=== PATIENT | female | born 1945 ===

== ENCOUNTER 2017-01-15 02:13 | Inpatient (IN) ==
--- NOTE | 2017-01-15 02:53 | Emergency Department Note ---
Bam Saldivar Mantricia, am scribing for, and in the presence of, Jamey Corrales MD 02:50. Antoni Saldivar Robert M, MD, personally performed the services described in this documentation, ascribed by Diana Kuhn in my presence, and it is both accurate and complete 252 . Arrival - Arrival Chief Complaint: Extremity Injury Stated Complaint: right hip Fx ED Nursing Triage Note: Patient to ED via EMS from [facility] ED for further evaluation and treatment of right hip Fx s/p fall 6 days ago. Patient is taken care of by her son who told [facility] that after she fell she did not c/o pain until 2 days ago. [facility] reports internal rotation and shortening, but good cap refill and pulses. Patient arrives to ED awake and alert. Mode of Arrival: Stretcher Limitations: No Limitations Source: Patient - History of Present Illness HPI Narrative: Pt is a 71 y/o female arriving to ED by EMS from [facility] ED for further evaluation and treatment of right hip fracture s/p fall 6 days ago. Patient is taken care of her son who reported to [facility] that after pt fell, she did not c/o pain until 2 days ago. Pt ambulates with a wheelchair. She has a PMHx of right sided CVA. No other complaints were reported to ED. Onset (ago): hour(s) Consistency: constant Severity: moderate Date of Last Menstrual Period: HYST Allergies/Adverse Reactions: Allergies Allergy/AdvReac Type Severity Reaction Status Date / Time codeine Allergy HIVES Verified 01/15/17 02:27 doxycycline Allergy HIVES Verified 01/15/17 02:27 Home Medications: Home Medications Medication Instructions Recorded Confirmed Type Chlorthalidone 25 mg PO QAM 11/14/14 01/15/17 History Dipyridamole/Aspirin 200-25 1 capsule PO BID 11/14/14 01/15/17 History [Aggrenox] Gabapentin 100 mg PO QPM 11/14/14 01/15/17 History Losartan [Cozaar] 50 mg PO DAILY 11/14/14 01/15/17 History Metoprolol Succinate Xl [Toprol Xl] 50 mg PO QPM 11/14/14 01/15/17 History Ranitidine Tab [Zantac Tab] 150 mg PO BID 11/14/14 01/15/17 History amLODIPine [Norvasc] 10 mg PO DAILY 11/14/14 01/15/17 History Hypromellose [Systane Gel] 1 drop BOTH EYES QID PRN 01/15/17 01/15/17 History Mineral Oil/Petrolatum,White 1 applic BOTH EYES BEDTIME PRN 01/15/17 01/15/17 History [Artificial Tears Eye Ointment] Multivitamin with Iron 1 tablet PO DAILY 01/15/17 01/15/17 History [Multivitamins with Iron] Naproxen [Naproxen Tab] 1 tablet PO BEDTIME 01/15/17 01/15/17 History Potassium Chloride 1 tablet PO DAILY 01/15/17 01/15/17 History Simvastatin 1 tablet PO DAILY 01/15/17 01/15/17 History Terbinafine 1% Cream [Lamisil AT 1 applic TRANSDERM BID 01/15/17 01/15/17 History 1% Cream] metFORMIN [Glucophage] 1 tablet PO DAILY 01/15/17 01/15/17 History traZODone [Desyrel] 50 tablet PO BEDTIME 01/15/17 01/15/17 History Review of System - Review of System 12 point system: reviewed and no additional remarkable complaints except as stated - Review of System Constitutional: Absent: chills, diaphoresis, fever Respiratory: Absent: cough Cardiovascular: Absent: chest pain Gastrointestinal: Absent: abdominal pain, nausea, vomiting, diarrhea Musculoskeletal: Present: leg pain, other (right hip fx). Absent: arm pain, back pain, neck pain Medical,Surgical,& Family Hx - Medical History Cardio: History of: Cerebrovascular Disease, Hypertension HEENT: History of: Eye Problem (cataracts in left eye) Endocrine: History of: Diabetes Mellitus (IDDM) Genitourinary: History of: Bladder Problem Hematology: No history of: Blood Transfusion Reaction Other: No history of: Anesthesia Reactions - Surgical History Thoracic Surgeries: Patient denies;: Organ Transplant Abdominal Surgeries: Surgical HX of: Cholecystectomy (1982) Reproductive Surgeries: Surgical HX of;: Genitourinary Surgery (bladder surgery 1992), Hysterectomy, Tubal Ligation Orthopedic Surgeries: Surgical HX of;: Total Knee Replacement (right knee) - Social History Smoking Status: Never smoker Frequency of Alcohol Use: None Type of Drug Use: None Exam Vital Signs: Vital Signs Temperature 98.0 F 01/15/17 02:18 Pulse Rate 95 H 01/15/17 02:18 Respiratory Rate 18 01/15/17 02:18 Blood Pressure 141/60 01/15/17 02:18 O2 Sat by Pulse Oximetry 97 01/15/17 02:18 - General General appearance: alert, in no apparent distress - Head Head exam: Present: atraumatic, normocephalic, normal inspection - Eye Eye exam: Present: normal appearance, PERRL, EOMI - ENT ENT exam: Present: normal exam, normal oropharynx, mucous membranes moist, TM's normal bilaterally, normal external ear exam - Neck Neck exam: Present: normal inspection, full ROM, trachea midline. Absent: tenderness - Chest Chest inspection: Present: normal inspection, symmetric chest wall rise. Absent : tenderness - Respiratory Respiratory exam: Present: normal lung sounds bilaterally - Cardiovascular Cardiovascular exam: Present: regular rate, normal rhythm, normal heart sounds - Abdominal Exam Abdominal exam: Present: soft, normal bowel sounds. Absent: distention, tenderness, guarding, rebound - Expanded Lower Right Lower Hip/Pelvis exam: Present: tenderness, deformity (unclear), dislocation, shortening (unclear). Absent: full ROM Upper leg exam: Present: normal inspection Knee exam: Present: normal inspection Lower leg exam: Present: normal inspection Ankle exam: Present: normal inspection Foot/toe exam: Present: normal inspection Gait: not tested/not observed - Back Exam Back exam: Present: normal inspection, full ROM. Absent: tenderness - Neurological Exam Neurological exam: Present: alert, oriented X3, CN II-XII intact, normal gait, reflexes normal - Psychiatric Psychiatric exam: Present: normal affect, normal mood - Skin Skin exam: Present: warm, dry, intact, normal color Course - Consultations Consultation #1: Dr. Bravo will evaluate and admit the patient to the hospitalist service. Dr. Sarkis Sheth will be consulted in the morning. Time: 02:52 Results - Diagnostic Findings Procedure: Chest x-ray: report reviewed by me (Stable geriatric chest) Disposition Clinical Impression: Fracture of femoral neck, right, closed, Hemiparesis affecting right side as late effect of cerebrovascular accident, Diabetes, Hypertension Case discussed with: patient Disposition: Still a Patient Condition: Stable Time of Disposition: 02:53
[2017-01-15 03:10] LABS: Apearance,Urine CLOUDY (Clear); Bacteria,Urine Many /HPF (Few); Bilirubin,Urine Negative (Negative); Blood, Urine Small mg/dL (Negative); Glucose,Urine (UA) Negative (Negative); Ketones,Urine Negative (Negative); Mucus,Urine Occasional /LPF (Occasional); Nitrite,Urine Negative (Negative); Protein,Urine 100 MG/DL; Urine Color Amber (Yellow); Urine Specific Gravity 1.018 (1.001-1.035)
--- NOTE | 2017-01-15 03:18 | Hospitalist History & Physical ---
History of Present Illness Chief complaint: transferred from [place] for right hip fracture History of present illness: Ms. Hutchinson is a 71 year old female who presents for further evaluation and treatment of a right hip fracture. She was transferred from [place] after xray showed a closed right hip fracture without dislocation (report and imaging not available with records sent) Patient is somewhat a difficult historian but she is trying to provide a history. She is essentially wheelchair bound and states that about 5-6 days ago, she was trying to get out of the wheelchair and fell on her right side. There were no lost of consciousness, CP, SOB, or palpitations. She states that her sister in law helped her up. She did not have pain at that time. However, pain started about two days ago and began to worsen. It is worst when lying down. She has no further complaints. Home Medications Medication Instructions Recorded Confirmed Type Chlorthalidone 25 mg PO QAM 11/14/14 01/15/17 History Dipyridamole/Aspirin 200-25 1 capsule PO BID 11/14/14 01/15/17 History [Aggrenox] Gabapentin 100 mg PO QPM 11/14/14 01/15/17 History Losartan [Cozaar] 50 mg PO DAILY 11/14/14 01/15/17 History Metoprolol Succinate Xl [Toprol Xl] 50 mg PO QPM 11/14/14 01/15/17 History Ranitidine Tab [Zantac Tab] 150 mg PO BID 11/14/14 01/15/17 History amLODIPine [Norvasc] 10 mg PO DAILY 11/14/14 01/15/17 History Hypromellose [Systane Gel] 1 drop BOTH EYES QID PRN 01/15/17 01/15/17 History Mineral Oil/Petrolatum,White 1 applic BOTH EYES BEDTIME PRN 01/15/17 01/15/17 History [Artificial Tears Eye Ointment] Multivitamin with Iron 1 tablet PO DAILY 01/15/17 01/15/17 History [Multivitamins with Iron] Naproxen [Naproxen Tab] 1 tablet PO BEDTIME 01/15/17 01/15/17 History Potassium Chloride 1 tablet PO DAILY 01/15/17 01/15/17 History Simvastatin 1 tablet PO DAILY 01/15/17 01/15/17 History Terbinafine 1% Cream [Lamisil AT 1 applic TRANSDERM BID 01/15/17 01/15/17 History 1% Cream] metFORMIN [Glucophage] 1 tablet PO DAILY 01/15/17 01/15/17 History traZODone [Desyrel] 50 tablet PO BEDTIME 01/15/17 01/15/17 History Allergies Allergy/AdvReac Type Severity Reaction Status Date / Time codeine Allergy HIVES Verified 01/15/17 02:27 doxycycline Allergy HIVES Verified 01/15/17 02:27 Medical,Surgical,& Family Hx - Medical History Cardio: History of: Cerebrovascular Disease, Hypertension HEENT: History of: Eye Problem (cataracts in left eye) Endocrine: History of: Diabetes Mellitus (IDDM) Genitourinary: History of: Bladder Problem Gastrointestinal: History of: GERD Hematology: No history of: Blood Transfusion Reaction Other: No history of: Anesthesia Reactions - Surgical History Thoracic Surgeries: Patient denies;: Organ Transplant Abdominal Surgeries: Surgical HX of: Cholecystectomy (1982) Reproductive Surgeries: Surgical HX of;: Genitourinary Surgery (bladder surgery 1992), Hysterectomy, Tubal Ligation Orthopedic Surgeries: Surgical HX of;: Total Knee Replacement (right knee) - Family History Family History: noncontributory - Social History Smoking Status: Never smoker Frequency of Alcohol Use: None Type of Drug Use: None Functional capacity: wheelchair bound 12 point system: reviewed and no additional remarkable complaints except as stated Exam - Constitutional Vitals: Period Temp Pulse Resp BP Sys/Garcia Pulse Ox Last 24 Hr 98.0 F-98.0 F 95-95 18-18 141-141/60-60 97 General appearance: normal weight - Head Head exam: Present: normal inspection - Eye Eye exam: Present: EOMI Pupils: Present: JOHNNY - ENT ENT exam: Present: normal exam - Respiratory Respiratory exam: Present: clear to auscultation bilaterally. Absent: rales, rhonchi, wheezes - Cardiovascular Cardiovascular exam: Present: regular rate and rhythm. Absent: diastolic murmur , systolic murmur - GI/Abdominal GI/Abdominal exam: Present: normal bowel sounds, soft. Absent: distended, guarding, tenderness - Extremities Exam Extremities exam: Present: normal capillary refill (palpable DP and PT pulses), other (contractures of right elbow/ hand and right leg; RLE: significant shortening with external rotation of right hip and with groin tenderness; decreased ROM) - Neurological Exam Neurological exam: Present: alert, other (knows name and that she is in a hospital; does not recall year or name of hospital) - Psychiatric Psychiatric exam: Present: normal affect, normal mood Results - Labs CBC & BMP: 01/15/17 02:58 Labs: labs and report of right hip xray not available in records sent with patient - Impressions Assessment: 1. Recent fall 2. Right hip fracture 3. Comorbid conditions: CVA with right hemiparesis, HTN, DM, dyslipidemia, GERD Plan: Consult ortho, control pain, falls precautions, calcium/vitamin D, DVT and GI prophalaxis. Obtain basic labs, basic anemia work up, chest x-ray, and EKG. Restart home medications as appropriate The plan of care may be modified as more information becomes available.
[2017-01-15 03:27] LABS: Basophils % 0.5 % (0.0-0.8); Eosinophils % 0.5 % (0.00-10.9); Hematocrit 30.3 VOL% (35.7-47.0); Hemoglobin 10.4 GM/DL (12.0-16.0); Immature Granulocytes % 0.6 %; Immature Granulocytes Absolute 0.04 #; Lymphocytes # 0.7 10*3/uL (1.4-4.0); Lymphocytes % 11.5 % (21.3-54.2); Mean Corpuscular HGB Conc 34.3 GM/DL (32-36); Mean Corpuscular Hemoglobin 32 PG (27-34); Mean Corpuscular Volume 94.1 FL (87-102); Mean Platelet Volume 10.2 FL (9.6-12.0); Monocytes # 0.7 10*3/uL (0.11-0.8); Monocytes % 10.5 % (1.7-12.7); Neutrophils # 4.9 10*3/uL (1.4-7.4); Neutrophils % 76.4 % (38.7-73.9); Platelet Count 237 T/CUMM (130-400); Red Blood Count 3.22 MC/CUMM (3.8-5.5); Red Cell Distribution Width 13.6 % (9.3-17.3); White Blood Count 6.5 T/CUMM (4-12)
[2017-01-15] MEDS ORDERED: MORPHINE 2 MG/1 ML SYRINGE IV PRN (03:32)
[2017-01-15 03:44] LABS: PT Patient Result 10.3 SECS
[2017-01-15 04:21] LABS: Blood Urea Nitrogen 47 MG/DL (7-18); Calcium 8.8 MG/DL (8.5-10.1); Glucose 178 MG/DL (74-106); Magnesium 2.1 MG/DL (1.8-2.4); Osmolality,Calculated 296.3 MOS/KG (273-304); Potassium 4.2 MMOL/L (3.5-5.1); Sodium 141 MMOL/L (136-145)
--- NOTE | 2017-01-15 05:42 | EKG Report ---
Stationary ECG Study [facility] Test Date: 01/15/2017 5:43:11 AM Pat Name: ABDOUL TSE Department: Room: 324 Gender: F Pourer Metal: CHE : 1945 Requested by: Radha Bravo Order Number: [id number] Reading MD: HENNY WELLER Intervals [place] Rate: 82 P: 46 AK: 155 QRS: -22 QRSD: 95 T: 83 QT: 405 QTc: 443 Interpretive Statements SINUS RHYTHM LEFT AXIS DEVIATION Electronically Signed On 01-15-17 11:43:12 CDT by HENNY WELLER [email or web address]
[2017-01-15 07:22] LABS: Ferritin 227.1 ng/ml (8-252)
--- NOTE | 2017-01-15 07:37 | XRay Report ---
XR chest 1V portable Indication: Chest pain, shortness of breath Comparison: 15 Nov 2014 Findings: The heart and mediastinum are normal in size and configuration. The pulmonary vascularity is normal in caliber. No lung infiltrates, effusions, pneumothorax or other abnormality is demonstrated. Impression: Normal chest x-ray PROCEDURE INTERPRETED AT [facility] [place] DEPARTMENT OF RADIOLOGY Final Report Signed by: Dr. Rios Mcneil
[2017-01-15] MEDS: METOPROLOL SUCCINATE XL 25 MG TABLET PO SCH (08:47)
[2017-01-15] MEDS: amLODIPine 5 MG TABLET PO SCH (08:47)
[2017-01-15] MEDS: FAMOTIDINE 20 MG TABLET PO SCH ×2 (09:00→21:21)
[2017-01-15] MEDS: CALCIUM (CARBONATE)/VITAMIN D 600 MG-400 UNIT TABLET PO SCH ×2 (09:00→21:21)
[2017-01-15] MEDS: ENOXAPARIN 40 MG/0.4 ML SYRINGE SUBCUT SCH (09:02)
--- NOTE | 2017-01-15 10:32 | Orthopedic Consult Note ---
History of Present Illness Chief complaint: Right hip fracture History of present illness: Ms. Hutchinson is a 71 year old female admitted last night for newly diagnosed femoral neck fracture right hip reportedly patient lives at home with her son most of the history is obtained from her daughter who is been located this morning and is now present. She has a history of CVA daughter reports she has not been ambulatory in over 4 years ago she did get to a wheelchair. She has not seen in over a month but does not recall any obvious pain or deformity about the right leg when she last saw her there is no history of any recent fall or injury. Examination: Well-developed nourished female. Essentially nonverbal. She has no obvious pain or discomfort about either upper extremity, she does have contractures about the hand and wrist consistent with previous right-sided spastic hemiparesis. she holds the right lower extremity abducted externally rotated with the knee hyperflexed and the foot underneath the left thigh she will not actively move the foot or ankle I can gently passively extend the knee to about 60 short of full extension. She does have a well-healed incision over the anterior right knee which consistent with a total knee she has a mild discomfort with gentle range of motion about the right hip X-rays reveal femoral neck fracture right hip the fracture appears to be chronic there is obvious shortening of the femur and erosive changes in the head which would be consistent with subacute process most likely a month or more old. Impression: Femoral neck fracture right hip Plan:. I have discussed discussed with the patient's and her daughter/family here this morning the diagnosis and treatment options. I do not think there is any indication for endoprosthesis at this point the proximal process is subacute if not chronic and she is a nonambulator believe her discomfort will be will be improving with time and we should be able to manage the femoral neck fracture without surgery she has developed a contracture of the right knee if this persists will make bed to chair mobility is difficult to have consulted physical therapy to provide some gentle passive motion. Given her nonambulatory status she is at risk for fracture, so therapy will have to be gentle. Will go ahead and order a diet and have geriatric social work professor consult believe it most appropriate for her to work with physical therapy and bed to chair mobility at the [facility]. The daughter reports the family needs to make some decisions regarding retirement placement. I believe that will give him the best opportunity to make that decision. Home Medications Medication Instructions Recorded Confirmed Type Chlorthalidone 25 mg PO QAM 11/14/14 01/15/17 History Dipyridamole/Aspirin 200-25 1 capsule PO BID 11/14/14 01/15/17 History [Aggrenox] Gabapentin 100 mg PO QPM 11/14/14 01/15/17 History Losartan [Cozaar] 50 mg PO DAILY 11/14/14 01/15/17 History Metoprolol Succinate Xl [Toprol Xl] 50 mg PO QPM 11/14/14 01/15/17 History Ranitidine Tab [Zantac Tab] 150 mg PO BID 11/14/14 01/15/17 History amLODIPine [Norvasc] 10 mg PO DAILY 11/14/14 01/15/17 History Hypromellose [Systane Gel] 1 drop BOTH EYES QID PRN 01/15/17 01/15/17 History Mineral Oil/Petrolatum,White 1 applic BOTH EYES BEDTIME PRN 01/15/17 01/15/17 History [Artificial Tears Eye Ointment] Multivitamin with Iron 1 tablet PO DAILY 01/15/17 01/15/17 History [Multivitamins with Iron] Naproxen [Naproxen Tab] 1 tablet PO BEDTIME 01/15/17 01/15/17 History Potassium Chloride 1 tablet PO DAILY 01/15/17 01/15/17 History Simvastatin 1 tablet PO DAILY 01/15/17 01/15/17 History Terbinafine 1% Cream [Lamisil AT 1 applic TRANSDERM BID 01/15/17 01/15/17 History 1% Cream] metFORMIN [Glucophage] 1 tablet PO DAILY 01/15/17 01/15/17 History traZODone [Desyrel] 50 tablet PO BEDTIME 01/15/17 01/15/17 History Allergies Allergy/AdvReac Type Severity Reaction Status Date / Time codeine Allergy HIVES Verified 01/15/17 02:27 doxycycline Allergy HIVES Verified 01/15/17 02:27 Medical,Surgical,& Family Hx - Medical History Cardio: History of: Cerebrovascular Disease, Hypertension HEENT: History of: Eye Problem (cataracts in left eye) Endocrine: History of: Diabetes Mellitus (IDDM) Genitourinary: History of: Bladder Problem Gastrointestinal: History of: GERD Hematology: No history of: Blood Transfusion Reaction Other: No history of: Anesthesia Reactions - Surgical History Thoracic Surgeries: Patient denies;: Organ Transplant Abdominal Surgeries: Surgical HX of: Cholecystectomy (1982) Reproductive Surgeries: Surgical HX of;: Genitourinary Surgery (bladder surgery 1992), Hysterectomy, Tubal Ligation Orthopedic Surgeries: Surgical HX of;: Total Knee Replacement (right knee) - Social History Smoking Status: Never smoker Frequency of Alcohol Use: None Type of Drug Use: None Exam - Constitutional Vitals: Period Temp Pulse Resp BP Sys/Garcia Pulse Ox Last 24 Hr 97.3 F-98.0 F 83-95 16-18 116-141/53-80 95-98 Results - Labs CBC & BMP: 01/15/17 02:58 01/15/17 02:58
[2017-01-16] MEDS: amLODIPine 5 MG TABLET PO SCH (09:12)
[2017-01-16] MEDS: CALCIUM (CARBONATE)/VITAMIN D 600 MG-400 UNIT TABLET PO SCH ×2 (09:12→20:53)
[2017-01-16] MEDS: ENOXAPARIN 40 MG/0.4 ML SYRINGE SUBCUT SCH (09:12)
[2017-01-16] MEDS: METOPROLOL SUCCINATE XL 25 MG TABLET PO SCH (09:12)
[2017-01-16] MEDS: FAMOTIDINE 20 MG TABLET PO SCH ×2 (09:12→20:53)
[2017-01-17] MEDS ORDERED: MINERAL OIL/PETROLATUM OPH OINT 3.5 GM TUBE BOTH EYES PRN (08:39)
[2017-01-17] MEDS ORDERED: CARBOXYMETHYLCELLULOSE 1% OPH SOLN BOTH EYES PRN ×2 (08:39→12:00)
--- NOTE | 2017-01-17 08:39 | Hospitalist Progress Note ---
Assessment and Plan (1) Fracture of femoral neck, right, closed Status: Acute Assessment and plan: The patient has right femoral neck fracture. Dr. Dockery has recommended nonsurgical recuperation. The patient's home situation is under investigation by the branch general manager's office. Until that matters settled she may need swing bed placement for continued physical therapy. Current Visit: Yes Qualifiers: Encounter type: initial encounter Qualified Code(s): S72.001A - Fracture of unspecified part of neck of right femur, initial encounter for closed fracture (2) Hemiparesis affecting right side as late effect of cerebrovascular accident Status: Acute Current Visit: Yes (3) Diabetes Status: Acute Current Visit: Yes Hospitalist: Subjective Interval history: The patient is resting comfortably in bed today. Investigation of the patient' s home situation continues. I coordinated care with the case finishing machine adjuster and put in referral for swing bed at [facility]. Alternatives include [facility] swing bed unit. Exam - Constitutional Vitals: Period Temp Pulse Resp BP Sys/Garcia Pulse Ox Last 24 Hr 96.8 F-99.2 F 74-81 18-20 95-139/51-70 92-99 General appearance: no acute distress - Respiratory Respiratory exam: Present: clear to auscultation bilaterally - Cardiovascular Cardiovascular exam: Present: regular rate and rhythm - GI/Abdominal GI/Abdominal exam: Present: normal bowel sounds Results - Labs CBC & BMP: 01/15/17 02:58 01/15/17 02:58 Lab Results: I have reviewed the past 24 hour labs Specialty Discharge - Follow Up or Referrals Follow up with: Grant Dockery Jr., MD [Physician] -
[2017-01-17] MEDS ORDERED: MULTIVITAMIN (CENTRUM) TABLET PO SCH (09:00)
[2017-01-17] MEDS ORDERED: LOSARTAN 50 MG TABLET PO SCH (09:00)
[2017-01-17] MEDS ORDERED: metFORMIN 850 MG TABLET PO SCH (09:00)
[2017-01-17] MEDS ORDERED: DIPYRIDAMOLE/ASPIRIN 200-25 MG CAPSULE PO SCH (09:00)
[2017-01-17] MEDS ORDERED: POTASSIUM CHLORIDE 10 MEQ TABLET PO SCH (09:00)
[2017-01-17] MEDS ORDERED: SIMVASTATIN 20 MG TABLET PO SCH (09:00)
[2017-01-17] MEDS: amLODIPine 5 MG TABLET PO SCH (09:57)
[2017-01-17] MEDS: ENOXAPARIN 40 MG/0.4 ML SYRINGE SUBCUT SCH (09:57)
[2017-01-17] MEDS: CALCIUM (CARBONATE)/VITAMIN D 600 MG-400 UNIT TABLET PO SCH (09:58)
[2017-01-17] MEDS: METOPROLOL SUCCINATE XL 25 MG TABLET PO SCH (09:58)
[2017-01-17] MEDS: FAMOTIDINE 20 MG TABLET PO SCH (09:58)
--- NOTE | 2017-01-17 10:14 | Discharge Summary ---
Hospital Course - Hospital Course Hospital Course: The patient was admitted to the hospital for evaluation of right hip fracture. The patient has previous left brain stroke with right hemiparesis and she is wheelchair-bound. Dr. Dockery made evaluation and it was his opinion that the patient should be treated nonoperatively because the fracture was subacute and the patient is not expected to regain ambulation. I coordinated care with Dr. vines on the date of discharge and he has agreed to accept her in transfer. On the date of discharge the patient has clear chest and abdomen is soft heart has regular rate and rhythm. I screen the patient for tobacco use and she is not a smoker. I gave her 4 minutes encouragement to avoid tobacco in the future. Total discharge time was 32 minutes for coordination of care, examination, education of patient, and preparation of discharge documents. - Time spent with patient Time with patient DS: Greater than 30 minutes Diagnosis - Discharge Diagnosis (1) Fracture of femoral neck, right, closed Status: Chronic (2) Hemiparesis affecting right side as late effect of cerebrovascular accident Status: Chronic (3) Diabetes Status: Chronic Specialty Discharge - Follow Up or Referrals Follow up with: Grant Dockery Jr., MD [Physician] - Discharge Plan - Discharge Data Disposition: Disch/Xfer-[facility] Term Hos Condition at Discharge: Stable Discharge Diet: diabetic diet - Discharge Medications New RX: Calcium (Carb)/Vit D 600-400 [Caltrate 600 + D] 1 tablet PO BID tablet RX: Enoxaparin [Lovenox] 40 mg SUBCUT Q24H syringe RX: Morphine Inj 1 mg IV Q4H PRN syringe PRN Reason: Pain Severe (8-10) RX: HYDROcodone/ACETAMIN 5-325 [[place] 5-325] 1 tablet PO Q4H PRN tablet PRN Reason: Pain Moderate (4-7) Continue RX: Dipyridamole/Aspirin 200-25 [Aggrenox] 1 capsule PO BID RX: Ranitidine Tab [Zantac Tab] 150 mg PO BID RX: Metoprolol Succinate Xl [Toprol Xl] 50 mg PO QPM RX: amLODIPine [Norvasc] 10 mg PO DAILY RX: Losartan [Cozaar] 50 mg PO DAILY RX: Gabapentin 100 mg PO QPM RX: Chlorthalidone 25 mg PO QAM RX: metFORMIN [Glucophage] 1 tablet PO DAILY RX: Simvastatin 1 tablet PO DAILY RX: Potassium Chloride 1 tablet PO DAILY RX: Naproxen [Naproxen Tab] 1 tablet PO BEDTIME RX: Multivitamin with Iron [Multivitamins with Iron] 1 tablet PO DAILY RX: Hypromellose [Systane Gel] 1 drop BOTH EYES QID PRN PRN Reason: Dry Eyes RX: traZODone [Desyrel] 50 tablet PO BEDTIME RX: Terbinafine 1% Cream [Lamisil AT 1% Cream] 1 applic TRANSDERM BID RX: Mineral Oil/Petrolatum,White [Artificial Tears Eye Ointment] 1 applic BOTH EYES BEDTIME PRN PRN Reason: Dry Eyes - Follow Up or Referral Follow Up: Grant Dockery Jr., MD [Physician] - - Forms/Instructions Instructions: Hip Fracture, Speech Pathologist Assistant (GEN) Exam - Constitutional Vitals: Period Temp Pulse Resp BP Sys/Garcia Pulse Ox Last 24 Hr 96.8 F-99.2 F 74-81 18-20 95-139/51-70 92-99 Discharge Results Procedures and tests throughout hospitalization: Pending Orders 01/15/17 Urine Culture Routine 01/18/17 04:00 Basic Metabolic Panel w/Mg IN AM Comp Blood Count Auto Diff IN AM Labs on day of discharge: Preliminary micro results at discharge 01/15/17 Unknown Urine Culture - Preliminary Urine,Catheterized Gram Negative Rods Gram Positive Cocci Microstrep plus panel 1 DS: Provider Date of admission: 01/15/17 03:29 Primary care physician: . No PCP Attending physician on admission: Radha Bravo MD Consults: 01/15/17 03:42 Consult to Physician [CONS] Routine Comment: right hip fracture Consulting Provider: Grant Dockery Jr. Consulting Provider Notified: Yes When should Consulting Provider be notified: In am Person Notified: [email or web address] Date Notified: 01/15/17 Time Notified: 08:33 01/15/17 10:24 Consult to Physical Therapy [CONS] Routine Reason for Physical Therapy: Evaluate and Treat Start Therapy: Today Consult Comment: Bed to chair mobility, gentle passive range of motion right knee 01/15/17 10:25 Consult to Case Mgmt/Social Srvs [CONS] Routine Reason for Case Mgmt/Social Srvs: Discharge Planning Consult Comment: Swing bed at [facility] for PT, family to decide about nursing h Discharging clinician: Montrell Ferrera MD
[2017-01-17 11:19] VITALS: BP 121/63
[2017-01-17] MEDS ORDERED: METOPROLOL SUCCINATE XL 50 MG TABLET PO SCH (19:00)
== END 2017-01-17 13:45 | disposition hospice, home (50) | DRG 536 ==
LOC: EDBD → EDUNIT# → N.ED 02:13 → SUATTDRO 03:29 → N.EDINP 03:29 → N.3E 03:44
PROVIDERS: ADMIT Internal Medicine; ATTEND Internal Medicine